=== PATIENT | female | born 1970 | race Caucasian/White ===

== ENCOUNTER 2016-12-06 11:02 | Emergency (ER) | payer MEDICARE, OTHER ==
[~2016-12-06] VITALS: Ht 170.2 cm; Wt 77.1 kg
[2016-12-06 11:37] VITALS: BP 111/76
[2016-12-06] MEDS ORDERED: KETOROLAC TROMETH 60MG/2ML VIAL IM ONE (12:00)
[2016-12-06] MEDS ORDERED: PHENAZOPYRIDINE HCL 100 MG TAB PO ONE (12:00)
== END 2016-12-06 12:37 | disposition home or self-care (01) ==
LOC: ER 11:06
DX: N39.0 Urinary tract infection, site not specified (principal); Z88.7 Allergy status to serum and vaccine
CPT/HCPCS: 96372; 99283; J1885

== ENCOUNTER 2017-02-23 05:59 | Emergency (ER) | payer OTHER ==
[~2017-02-23] VITALS: Ht 172.7 cm; Wt 74.8 kg
[2017-02-23 06:10] VITALS: BP 139/88
[2017-02-23 06:23] LABS: Urine Bilirubin Negative (Negative); Urine Blood Negative /uL (Negative); Urine Color Yellow (Yellow); Urine Glucose Normal (Normal); Urine Ketone Negative (Negative); Urine Mucus FEW (None Seen); Urine Nitrite Negative (Negative); Urine RBC <1 /hpf (0 - 4); Urine Squamous Epithelial Cell FEW /hpf (<5); Urine Urobilinogen Normal (Negative)
== END 2017-02-23 07:11 | disposition home or self-care (01) ==
LOC: ER 06:02
DX: N39.0 Urinary tract infection, site not specified (principal); Z88.7 Allergy status to serum and vaccine
CPT/HCPCS: 81001